=== PATIENT | female | born 1995 | race Caucasian/White ===

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

== ENCOUNTER 2018-02-14 08:09 | Emergency (ER) | payer OTHER ==
[~2018-02-14] VITALS: Ht 177.8 cm; Wt 142.9 kg
[~2018-02-14 08:09] MED LIST changes: +NAPROXEN500 MG PO; +PREDNISONE20 M1 PO; +SUDAFED 12 HOU120 MG PO
[2018-02-14 08:11] VITALS: BP 114/67
[2018-02-14] MEDS ORDERED: MUCINEX DM ER1 EACH PO (08:28)
[2018-02-14] MEDS ORDERED: ZITHROMAX250 MG PO (08:28)
== END 2018-02-14 08:30 | disposition home or self-care (01) ==
LOC: ED 08:09
DX: J06.9 Acute upper respiratory infection, unspecified (principal); Z88.6 Allergy status to analgesic agent; Z88.5 Allergy status to narcotic agent

== ENCOUNTER 2018-03-03 19:52 | Emergency (ER) | payer OTHER ==
[~2018-03-03] VITALS: Wt 135.6 kg
[~2018-03-03 19:52] MED LIST changes: +MUCINEX DM ER1 EACH PO; +ZITHROMAX250 MG PO
[2018-03-03 19:53] VITALS: BP 122/86
[2018-03-03 20:34] LABS: BASO % 0.5 % (0.0-1.0); EOS # 0.1 10*3/uL (0.0-0.4); EOS % 1.3 % (1.0-4.0); HEMOGLOBIN 13.8 g/dl (12.0-16.0); LYMPH # 2.1 10*3/uL (1.3-4.4); LYMPH % 35.1 % (27.0-41.0); MEAN CELL VOLUME 87.3 fl (81.0-99.0); MEAN CORPUSCULAR HGB 28.7 pg (27.0-31.0); MEAN CORPUSCULAR HGB CONC 32.9 g/dl (33.0-37.0); MONO # 0.6 10*3/uL (0.1-1.0); MONO % 9.5 % (3.0-9.0); NEUT # 3.2 10*3/uL (2.3-7.9); NEUT % 53.4 % (47.0-73.0); PLATELET COUNT AUTOMATED 271 10*3/uL (130-400); RED BLOOD COUNT 4.81 10*6/uL (4.10-5.10)
[2018-03-03 20:44] LABS: BILIRUBIN NEGATIVE (NEGATIVE); BLOOD NEGATIVE (NEGATIVE); CLARITY SL CLOUDY (CLEAR); COLOR YELLOW (YELLOW); GLUCOSE NEGATIVE (NEGATIVE); KETONE NEGATIVE (NEGATIVE); LEUKO ESTERASE NEGATIVE (NEGATIVE); NITRITE NEGATIVE (NEGATIVE); PH 5.5 (5.0-9.0); SPECIFIC GRAVITY >= 1.030 (1.005-1.030); UROBILINOGEN 0.2 E.U./dl (0.2-1.0)
[2018-03-03 20:54] LABS: ALBUMIN 3.8 gm/dl (3.1-4.5); BUN 8 mg/dl (7-24); CHLORIDE 115 mmol/L (98-107); LIPASE 147 U/L (73-393); POTASSIUM 3.4 mmol/L (3.5-5.1); SGOT/AST 17 IU/L (3-35); SGPT/ALT 30 U/L (12-78); SODIUM 144 mmol/L (136-145); TOTAL PROTEIN 7.4 gm/dL (6.4-8.2)
[2018-03-03 20:56] LABS: MUCOUS TRACE
[2018-03-03 20:56] LABS: ALKALINE PHOSPHATASE 95 U/L (45-117)
[2018-03-03] MEDS ORDERED: LOMOTIL 2.5-0.1 EACH PO (20:58)
[2018-03-03] MEDS ORDERED: ZOFRAN4 MG PO (20:58)
== END 2018-03-03 21:20 | disposition home or self-care (01) ==
LOC: ED 19:52
PROVIDERS: Nurse Practitioner Family
DX: R19.7 Diarrhea, unspecified (principal); R11.0 Nausea; Z88.5 Allergy status to narcotic agent; Z88.6 Allergy status to analgesic agent

== ENCOUNTER 2018-05-17 21:07 | Emergency (ER) | payer OTHER ==
[~2018-05-17] VITALS: Ht 180.3 cm; Wt 146.5 kg
[~2018-05-17 21:07] MED LIST changes: +LOMOTIL 2.5-0.1 EACH PO; +ZOFRAN4 MG PO
[2018-05-17 21:09] VITALS: BP 141/84
[2018-05-17] MEDS ORDERED: ZITHROMAX250 MG PO (21:41)
[2018-05-17] MEDS ORDERED: TESSALON PERLE100 MG PO (21:42)
== END 2018-05-17 22:00 | disposition home or self-care (01) ==
LOC: ED 21:07
DX: J20.9 Acute bronchitis, unspecified (principal); Z88.5 Allergy status to narcotic agent; Z88.6 Allergy status to analgesic agent; Z79.899 Other long term (current) drug therapy

== ENCOUNTER 2018-05-26 20:07 | Emergency (ER) | payer OTHER ==
[~2018-05-26] VITALS: Ht 180.3 cm; Wt 146.1 kg
[2018-05-26 20:10] VITALS: BP 132/76
[2018-05-26 21:03] LABS: BILIRUBIN NEGATIVE (NEGATIVE); BLOOD NEGATIVE (NEGATIVE); CLARITY SL CLOUDY (CLEAR); COLOR YELLOW (YELLOW); GLUCOSE NEGATIVE (NEGATIVE); KETONE NEGATIVE (NEGATIVE); LEUKO ESTERASE NEGATIVE (NEGATIVE); NITRITE NEGATIVE (NEGATIVE); PH 6.5 (5.0-9.0); UROBILINOGEN 0.2 E.U./dl (0.2-1.0)
[2018-05-26 21:15] LABS: BACTERIA 2+
[2018-05-26 21:16] LABS: URINE AMPHETAMINES < 1000 (1000ng/ml); URINE BARBITURATES < 200 (200ng/ml); URINE CANNABINOIDS (THC) < 50 (50ng/ml); URINE METHADONE < 300 (300ng/ml); URINE OPIATES < 300 (300ng/ml)
[2018-05-26 21:17] LABS: URINE BENZODIAZEPINES < 200 (200ng/ml); URINE COCAINE < 300 (300ng/ml)
[2018-05-26 21:18] LABS: URINE PHENCYCLIDINE < 25 (25ng/ml)
== END 2018-05-26 22:11 | disposition home or self-care (01) ==
LOC: ED 20:07
PROVIDERS: Nurse Practitioner Family
DX: Z02.83 Encounter for blood-alcohol and blood-drug test (principal); Z88.6 Allergy status to analgesic agent

== ENCOUNTER → 2018-06-19 | Outpatient (CLI) | payer OTHER ==
[2018-06-19 15:42] LABS: ALBUMIN 3.5 gm/dl (3.1-4.5); ALKALINE PHOSPHATASE 88 U/L (45-117); BUN 9 mg/dl (7-24); CHLORIDE 105 mmol/L (98-107); CREATININE 0.67 mg/dL (0.55-1.02); POTASSIUM 3.9 mmol/L (3.5-5.1); SGOT/AST 11 IU/L (3-35); SGPT/ALT 29 U/L (12-78); SODIUM 138 mmol/L (136-145)
== END | disposition home or self-care (01) ==
LOC: LAB 14:38
PROVIDERS: Family Medicine
DX: E03.9 Hypothyroidism, unspecified (principal); R63.2 Polyphagia; R03.0 Elevated blood-pressure reading, without diagnosis of hypertension; Z68.43 Body mass index [BMI] 50.0-59.9, adult

== ENCOUNTER 2018-07-01 14:58 | Emergency (ER) | payer OTHER ==
[~2018-07-01] VITALS: Ht 180.3 cm; Wt 146.5 kg
[2018-07-01 15:00] VITALS: BP 143/88
[2018-07-01] MEDS ORDERED: AUGMENTIN 875-875 MG PO (16:47)
== END 2018-07-01 17:16 | disposition home or self-care (01) ==
LOC: ED 14:58
DX: J01.90 Acute sinusitis, unspecified (principal); H66.91 Otitis media, unspecified, right ear; R59.0 Localized enlarged lymph nodes; Z88.5 Allergy status to narcotic agent; Z88.6 Allergy status to analgesic agent

== ENCOUNTER 2019-03-23 01:19 | Emergency (ER) | payer OTHER ==
[~2019-03-23] VITALS: Ht 180.3 cm; Wt 113.4 kg
[2019-03-23 01:26] VITALS: BP 129/82
[2019-03-23] MEDS ORDERED: AMOXICILLIN500 M2 PO (02:17)
== END 2019-03-23 02:30 | disposition home or self-care (01) ==
LOC: ED 01:19
DX: H66.93 Otitis media, unspecified, bilateral (principal); Z88.5 Allergy status to narcotic agent; Z88.8 Allergy status to other drugs, medicaments and biological substances; Z79.2 Long term (current) use of antibiotics

== ENCOUNTER 2019-10-22 19:34 | Emergency (ER) | payer OTHER ==
[~2019-10-22] VITALS: Ht 180.3 cm; Wt 140.6 kg
[2019-10-22 19:40] VITALS: BP 130/90
[2019-10-22] MEDS ORDERED: PENICILLIN VK500 MG PO (19:54)
[2019-10-22] MEDS ORDERED: IBU800 MG PO (19:54)
== END 2019-10-22 20:03 | disposition home or self-care (01) ==
LOC: ED 19:34
DX: K04.7 Periapical abscess without sinus (principal); K02.9 Dental caries, unspecified; Z88.6 Allergy status to analgesic agent

== ENCOUNTER 2019-10-29 14:18 | Emergency (ER) | payer OTHER ==
[~2019-10-29] VITALS: Ht 180.3 cm; Wt 145.1 kg
[~2019-10-29 14:18] MED LIST changes: +IBU800 MG PO; +PENICILLIN VK500 MG PO
[2019-10-29 14:36] VITALS: BP 121/81
[2019-10-29] MEDS ORDERED: METHOCARBAMOL500 M1 PO (15:50)
[2019-10-29] MEDS ORDERED: NAPROSYN500 MG PO (15:50)
== END 2019-10-29 15:52 | disposition home or self-care (01) ==
LOC: ED 14:18
DX: S39.012A Strain of muscle, fascia and tendon of lower back, initial encounter (principal); Z88.6 Allergy status to analgesic agent; V49.9XXA Car occupant (driver) (passenger) injured in unspecified traffic accident, initial encounter; Y93.89 Activity, other specified; Y92.89 Other specified places as the place of occurrence of the external cause; Y99.8 Other external cause status

== ENCOUNTER → 2019-11-12 | Outpatient (CLI) | payer OTHER ==
[~2019-11-12] MED LIST changes: +METHOCARBAMOL500 M1 PO
== END | disposition home or self-care (01) ==
LOC: COVID19 00:24
PROVIDERS: ATTEND Family Medicine
DX: Z20.828 Contact with and (suspected) exposure to other viral communicable diseases (principal)

== ENCOUNTER 2020-01-25 21:10 | Emergency (ER) | payer OTHER | END 2020-01-25 22:41 | disposition left against medical advice (07) | LOC: ED 21:10 | DX: K08.89 Other specified disorders of teeth and supporting structures (principal); Z53.21 Procedure and treatment not carried out due to patient leaving prior to being seen by health care provider ==

== ENCOUNTER 2020-02-05 23:22 | Emergency (ER) | payer OTHER ==
[~2020-02-05] VITALS: Ht 180.3 cm; Wt 115.7 kg
[2020-02-05 23:30] VITALS: BP 128/87
== END 2020-02-06 00:40 | disposition home or self-care (01) ==
LOC: ED 23:22
DX: S60.221A Contusion of right hand, initial encounter (principal); Z88.5 Allergy status to narcotic agent; Z88.8 Allergy status to other drugs, medicaments and biological substances; W19.XXXA Unspecified fall, initial encounter; Y93.89 Activity, other specified; Y92.89 Other specified places as the place of occurrence of the external cause; Y99.8 Other external cause status

== ENCOUNTER → 2020-02-26 | Outpatient (CLI) | payer OTHER | END | disposition home or self-care (01) | LOC: COVID19 16:04 | PROVIDERS: ATTEND Family Medicine | DX: U07.1 COVID-19 (principal) ==

== ENCOUNTER 2020-05-28 12:23 | Emergency (ER) | payer OTHER ==
[~2020-05-28] VITALS: Ht 180.3 cm; Wt 136.1 kg
[2020-05-28 12:26] VITALS: BP 150/93
[2020-05-28 13:37] LABS: BILIRUBIN Negative (Negative); BLOOD 2+ (Negative); CLARITY Clear (Clear); COLOR Yellow (Yellow); GLUCOSE Negative (Negative); KETONE Negative (Negative); LEUKO ESTERASE 3+ (Negative); NITRITE Negative (Negative); PH 6.5 (4.5-8.0); UROBILINOGEN 0.2 E.U./dl (0.0-1.0)
[2020-05-28 13:47] LABS: BACTERIA 2+; MUCOUS TRACE; RBC 41-50 rbc/hpf (0-2); WBC 31-40 wbc/hpf (0-5)
[2020-05-28] MEDS ORDERED: CEPHALEXIN500 M1 PO ×2 (14:24)
== END 2020-05-28 14:28 | disposition home or self-care (01) ==
LOC: ED 12:23
PROVIDERS: Nurse Practitioner Family
DX: O23.41 Unspecified infection of urinary tract in pregnancy, first trimester (principal); O10.911 Unspecified pre-existing hypertension complicating pregnancy, first trimester; O99.281 Endocrine, nutritional and metabolic diseases complicating pregnancy, first trimester; E07.9 Disorder of thyroid, unspecified; Z98.890 Other specified postprocedural states; Z88.5 Allergy status to narcotic agent; Z88.8 Allergy status to other drugs, medicaments and biological substances; Z3A.00 Weeks of gestation of pregnancy not specified

== ENCOUNTER 2020-06-21 22:00 | Emergency (ER) | payer OTHER ==
[~2020-06-21] VITALS: Ht 175.2 cm; Wt 145.1 kg
[~2020-06-21 22:00] MED LIST changes: +CEPHALEXIN500 M1 PO
[2020-06-21 22:31] VITALS: BP 132/59
== END 2020-06-21 23:16 | disposition left against medical advice (07) ==
LOC: ED 22:00
DX: R07.81 Pleurodynia (principal); I10 Essential (primary) hypertension; Z53.21 Procedure and treatment not carried out due to patient leaving prior to being seen by health care provider

== ENCOUNTER 2020-10-22 14:07 | Emergency (ER) | payer OTHER ==
[2020-10-22 14:23] VITALS: BP 134/78
[2020-10-22] MEDS ORDERED: PREDNISONE20 M1 PO (17:24)
[2020-10-22] MEDS ORDERED: PROVENTIL HFA6.7 GM INH (17:24)
== END 2020-10-22 17:33 | disposition home or self-care (01) ==
LOC: ED 14:07
DX: O99.512 Diseases of the respiratory system complicating pregnancy, second trimester (principal); Z20.822 Contact with and (suspected) exposure to COVID-19; J40 Bronchitis, not specified as acute or chronic; R19.7 Diarrhea, unspecified; Z88.5 Allergy status to narcotic agent; Z88.8 Allergy status to other drugs, medicaments and biological substances

== ENCOUNTER 2021-01-29 00:06 | Emergency (ER) | payer OTHER ==
[~2021-01-29] VITALS: Ht 180.3 cm; Wt 163.3 kg
[~2021-01-29 00:06] MED LIST changes: +PROVENTIL HFA6.7 GM INH
[2021-01-29 00:21] VITALS: BP 138/87
[2021-01-29 01:06] LABS: BILIRUBIN Negative (Negative); BLOOD Negative (Negative); CLARITY Cloudy (Clear); COLOR Yellow (Yellow); GLUCOSE Negative (Negative); KETONE Negative (Negative); LEUKO ESTERASE Negative (Negative); NITRITE Negative (Negative); SPECIFIC GRAVITY 1.015 (1.001-1.030)
[2021-01-29 01:44] LABS: EPITHELIAL CELLS 51-100; WBC 0-2 wbc/hpf (0-5)
[2021-01-29 01:45] LABS: BACTERIA TRACE
[2021-01-29] MEDS ORDERED: CEPHALEXIN500 M1 PO (02:34)
== END 2021-01-29 02:50 | disposition home or self-care (01) ==
LOC: ED 00:06
PROVIDERS: Emergency Medicine
DX: R30.0 Dysuria (principal); R30.9 Painful micturition, unspecified; Z88.6 Allergy status to analgesic agent

== ENCOUNTER 2021-06-12 19:06 | Emergency (ER) | payer OTHER ==
[~2021-06-12] VITALS: Ht 172.7 cm; Wt 166.9 kg
[2021-06-12 19:20] VITALS: BP 117/39
[2021-06-12] MEDS ORDERED: AUGMENTIN 875-875 MG PO (19:33)
== END 2021-06-12 19:38 | disposition home or self-care (01) ==
LOC: ED 19:06
DX: H66.91 Otitis media, unspecified, right ear (principal); Z88.6 Allergy status to analgesic agent

== ENCOUNTER 2021-06-25 17:58 | Emergency (ER) | payer OTHER ==
[~2021-06-25] VITALS: Ht 180.3 cm; Wt 154.2 kg
[2021-06-25 18:17] VITALS: BP 136/87
[2021-06-25] MEDS ORDERED: PROVENTIL HFA6.7 GM INH (18:48)
[2021-06-25] MEDS ORDERED: PREDNISONE20 M1 PO (18:48)
[2021-06-25] MEDS ORDERED: MUCINEX1200 M1 PO (18:48)
[2021-06-25] MEDS ORDERED: ALLEGRA ALLERG180 M2 PO (18:48)
== END 2021-06-25 20:03 | disposition home or self-care (01) ==
LOC: ED 17:58
DX: J45.909 Unspecified asthma, uncomplicated (principal); Z88.8 Allergy status to other drugs, medicaments and biological substances

== ENCOUNTER 2021-08-10 09:10 | Emergency (ER) | payer OTHER ==
[~2021-08-10] VITALS: Ht 180.3 cm; Wt 165.6 kg
[~2021-08-10 09:10] MED LIST changes: +ALLEGRA ALLERG180 M2 PO; +MUCINEX1200 M1 PO
[2021-08-10 09:19] VITALS: BP 133/86
[2021-08-10] MEDS ORDERED: ZITHROMAX250 MG PO (11:12)
== END 2021-08-10 11:16 | disposition home or self-care (01) ==
LOC: ED 09:10
DX: H66.91 Otitis media, unspecified, right ear (principal); Z88.6 Allergy status to analgesic agent

== ENCOUNTER 2021-08-13 18:41 | Emergency (ER) | payer OTHER ==
[~2021-08-13] VITALS: Wt 163.3 kg
[2021-08-13 18:48] VITALS: BP 135/83
[2021-08-13] MEDS ORDERED: CETIRIZINE10 MG PO (19:03)
[2021-08-13] MEDS ORDERED: CEFDINIR300 MG PO (19:03)
== END 2021-08-13 19:07 | disposition home or self-care (01) ==
LOC: ED 18:41
DX: H65.01 Acute serous otitis media, right ear (principal); Z88.6 Allergy status to analgesic agent

== ENCOUNTER 2021-09-09 18:10 | Emergency (ER) | payer OTHER ==
[~2021-09-09 18:10] MED LIST changes: +CEFDINIR300 MG PO; +CETIRIZINE10 MG PO
[2021-09-09 18:27] VITALS: BP 138/79
== END 2021-09-09 18:58 | disposition home or self-care (01) ==
LOC: ED 18:10
DX: H60.91 Unspecified otitis externa, right ear (principal)

== ENCOUNTER 2021-09-12 20:30 | Emergency (ER) | payer OTHER ==
[2021-09-12 20:35] VITALS: BP 142/94
== END 2021-09-12 21:15 | disposition home or self-care (01) ==
LOC: ED 20:30
DX: Z04.1 Encounter for examination and observation following transport accident (principal); Z88.8 Allergy status to other drugs, medicaments and biological substances; V89.2XXA Person injured in unspecified motor-vehicle accident, traffic, initial encounter; Y93.89 Activity, other specified; Y92.89 Other specified places as the place of occurrence of the external cause; Y99.8 Other external cause status

== ENCOUNTER 2021-11-11 13:43 | Emergency (ER) | payer OTHER ==
[~2021-11-11] VITALS: Ht 180.3 cm; Wt 167.8 kg
[2021-11-11 13:50] VITALS: BP 148/93
[2021-11-11] MEDS ORDERED: AMOXICILLIN500 M3 PO (14:12)
== END 2021-11-11 13:56 | disposition home or self-care (01) ==
LOC: ED 13:43
DX: K02.9 Dental caries, unspecified (principal); Z88.5 Allergy status to narcotic agent; Z88.8 Allergy status to other drugs, medicaments and biological substances; Z88.6 Allergy status to analgesic agent; Z79.2 Long term (current) use of antibiotics; Z79.899 Other long term (current) drug therapy

== ENCOUNTER 2021-11-26 18:39 | Emergency (ER) | payer OTHER ==
[~2021-11-26] VITALS: Ht 180.3 cm; Wt 167.8 kg
[~2021-11-26 18:39] MED LIST changes: +AMOXICILLIN500 M3 PO
[2021-11-26 20:31] VITALS: BP 132/87
[2021-11-26] MEDS ORDERED: NAPROSYN500 MG PO (21:59)
== END 2021-11-26 22:13 | disposition home or self-care (01) ==
LOC: ED 18:39
DX: S83.91XA Sprain of unspecified site of right knee, initial encounter (principal); Z88.5 Allergy status to narcotic agent; Z88.8 Allergy status to other drugs, medicaments and biological substances; Z88.6 Allergy status to analgesic agent; Z79.2 Long term (current) use of antibiotics; Z79.899 Other long term (current) drug therapy; W18.39XA Other fall on same level, initial encounter; Y93.89 Activity, other specified; Y92.89 Other specified places as the place of occurrence of the external cause; Y99.8 Other external cause status

== ENCOUNTER 2021-12-30 02:49 | Emergency (ER) | payer OTHER ==
[~2021-12-30] VITALS: Ht 180.3 cm; Wt 165.6 kg
[2021-12-30 05:19] VITALS: BP 137/93
[2021-12-30 05:23] LABS: BILIRUBIN Negative (Negative); BLOOD Negative (Negative); CLARITY Clear (Clear); COLOR Yellow (Yellow); GLUCOSE Negative (Negative); KETONE Negative (Negative); LEUKO ESTERASE 1+ (Negative); NITRITE Negative (Negative); PH 5.5 (4.5-8.0); UROBILINOGEN 0.2 E.U./dl (0.0-1.0)
[2021-12-30 05:41] LABS: BACTERIA TRACE
[2021-12-30] MEDS ORDERED: CEPHALEXIN500 M1 PO (06:44)
== END 2021-12-30 06:56 | disposition home or self-care (01) ==
LOC: ED 02:49
PROVIDERS: Emergency Medicine
DX: N39.0 Urinary tract infection, site not specified (principal); Z88.6 Allergy status to analgesic agent

== ENCOUNTER 2022-01-01 01:11 | Emergency (ER) | payer OTHER ==
[~2022-01-01] VITALS: Ht 180.3 cm; Wt 172.4 kg
[2022-01-01 01:33] VITALS: BP 145/89
[2022-01-01 01:58] LABS: BILIRUBIN Negative (Negative); BLOOD Negative (Negative); CLARITY Clear (Clear); COLOR Yellow (Yellow); GLUCOSE Negative (Negative); KETONE Negative (Negative); LEUKO ESTERASE 3+ (Negative); NITRITE Negative (Negative); PH 5.5 (4.5-8.0); UROBILINOGEN 0.2 E.U./dl (0.0-1.0)
[2022-01-01 02:13] LABS: BACTERIA TRACE; WBC 31-40 wbc/hpf (0-5)
[2022-01-01] MEDS ORDERED: VALTREX1000 MG PO (03:42)
== END 2022-01-01 04:05 | disposition home or self-care (01) ==
LOC: ED 01:11
PROVIDERS: Emergency Medicine
DX: A60.00 Herpesviral infection of urogenital system, unspecified (principal); Z88.6 Allergy status to analgesic agent

== ENCOUNTER 2022-01-10 01:27 | Emergency (ER) | payer OTHER ==
[~2022-01-10 01:27] MED LIST changes: +VALTREX1000 MG PO
[2022-01-10 01:45] VITALS: BP 124/50
[2022-01-10] MEDS ORDERED: ONDANSETRON4 MG SL (02:42)
== END 2022-01-10 03:01 | disposition home or self-care (01) ==
LOC: ED 01:27
DX: K52.9 Noninfective gastroenteritis and colitis, unspecified (principal); R11.2 Nausea with vomiting, unspecified; Z88.5 Allergy status to narcotic agent; Z88.6 Allergy status to analgesic agent

== ENCOUNTER 2022-03-18 16:18 | Emergency (ER) | payer OTHER ==
[~2022-03-18] VITALS: Wt 161.0 kg
[~2022-03-18 16:18] MED LIST changes: +ONDANSETRON4 MG SL
[2022-03-18 16:31] VITALS: BP 114/81
[2022-03-18] MEDS ORDERED: NAPROSYN500 MG PO (19:22)
[2022-03-18] MEDS ORDERED: AMOXICILLIN500 M3 PO (19:22)
== END 2022-03-18 19:39 | disposition home or self-care (01) ==
LOC: ED 16:18
DX: K02.9 Dental caries, unspecified (principal); Z88.8 Allergy status to other drugs, medicaments and biological substances

== ENCOUNTER 2022-05-23 15:02 | Emergency (ER) | payer OTHER ==
[~2022-05-23] VITALS: Ht 180.3 cm; Wt 172.4 kg
[2022-05-23 15:10] VITALS: BP 155/99
[2022-05-24] MEDS ORDERED: TRAMADOL HCL50 MG PO (19:28)
[2022-05-24] MEDS ORDERED: CLINDAMYCIN HC300 MG PO (19:28)
== END 2022-05-23 15:44 | disposition left against medical advice (07) ==
LOC: ED 15:02
DX: K08.89 Other specified disorders of teeth and supporting structures (principal); Z88.8 Allergy status to other drugs, medicaments and biological substances

== ENCOUNTER 2022-05-24 18:32 | Emergency (ER) | payer OTHER ==
[~2022-05-24] VITALS: Ht 180.3 cm; Wt 172.4 kg
[2022-05-24 18:47] VITALS: BP 157/91
[2022-05-24] MEDS ORDERED: CLINDAMYCIN HC300 MG PO (19:28)
[2022-05-24] MEDS ORDERED: TRAMADOL HCL50 MG PO (19:28)
== END 2022-05-24 19:31 | disposition home or self-care (01) ==
LOC: ED 18:32
DX: K08.89 Other specified disorders of teeth and supporting structures (principal); Z88.8 Allergy status to other drugs, medicaments and biological substances

== ENCOUNTER 2022-05-26 11:54 | Emergency (ER) | payer OTHER ==
[~2022-05-26] VITALS: Ht 180.3 cm; Wt 172.4 kg
[~2022-05-26 11:54] MED LIST changes: +CLINDAMYCIN HC300 MG PO; +TRAMADOL HCL50 MG PO
[2022-05-26 12:06] VITALS: BP 142/100
[2022-05-26 12:28] LABS: BASO # 0.1 10*3/uL (0.0-0.1); BASO % 0.7 % (0.0-1.0); EOS # 0.2 10*3/uL (0.0-0.4); EOS % 1.6 % (1.0-4.0); HEMATOCRIT 46.6 % (37.0-47.0); LYMPH # 2.8 10*3/uL (1.3-4.4); LYMPH % 30.2 % (27.0-41.0); MEAN CELL VOLUME 87.4 fl (81.0-99.0); MEAN CORPUSCULAR HGB 28.5 pg (27.0-31.0); MEAN CORPUSCULAR HGB CONC 32.6 g/dl (33.0-37.0); MEAN PLATELET VOLUME 10.9 fl (9.6-12.3); MONO # 0.6 10*3/uL (0.1-1.0); MONO % 6.4 % (3.0-9.0); NEUT # 5.6 10*3/uL (2.3-7.9); NEUT % 60.8 % (47.0-73.0); PLATELET COUNT AUTOMATED 306 10*3/uL (130-400); RED BLOOD COUNT 5.33 10*6/uL (4.10-5.10); RED CELL DISTRI WIDTH 13.2 % (0-14.5); WHITE BLOOD COUNT 9.1 10*3/uL (4.8-10.8)
[2022-05-26 12:42] LABS: BUN 9 mg/dl (9-23); CHLORIDE 104 mmol/L (98-107); POTASSIUM 4.1 mmol/L (3.4-5.1)
[2022-05-26] MEDS ORDERED: PREDNISONE20 M1 PO (12:56)
[2022-05-26] MEDS ORDERED: MELOXICAM15 MG PO (12:56)
== END 2022-05-26 13:04 | disposition home or self-care (01) ==
LOC: ED 11:54
PROVIDERS: Internal Medicine
DX: K14.8 Other diseases of tongue (principal); T40.425A Adverse effect of tramadol, initial encounter; K08.89 Other specified disorders of teeth and supporting structures; I10 Essential (primary) hypertension; R60.9 Edema, unspecified; Z88.5 Allergy status to narcotic agent; Z88.8 Allergy status to other drugs, medicaments and biological substances; Z98.890 Other specified postprocedural states; Y92.89 Other specified places as the place of occurrence of the external cause

== ENCOUNTER 2022-06-21 20:52 | Emergency (ER) | payer OTHER ==
[~2022-06-21] VITALS: Ht 180.3 cm; Wt 172.8 kg
[~2022-06-21 20:52] MED LIST changes: +MELOXICAM15 MG PO
[2022-06-21 21:38] VITALS: BP 154/98
[2022-06-21] MEDS ORDERED: AMOX-CLAV 875-1 EACH PO (21:58)
== END 2022-06-21 22:08 | disposition home or self-care (01) ==
LOC: ED 20:52
DX: H66.91 Otitis media, unspecified, right ear (principal); Z88.8 Allergy status to other drugs, medicaments and biological substances

== ENCOUNTER 2022-07-31 20:49 | Emergency (ER) | payer OTHER ==
[~2022-07-31] VITALS: Ht 172.7 cm; Wt 149.7 kg
[~2022-07-31 20:49] MED LIST changes: +AMOX-CLAV 875-1 EACH PO
[2022-07-31 20:55] VITALS: BP 124/78
[2022-07-31 21:35] LABS: BASO # 0.1 10*3/uL (0.0-0.1); BASO % 0.7 % (0.0-1.0); EOS # 0.1 10*3/uL (0.0-0.4); EOS % 1.3 % (1.0-4.0); HEMATOCRIT 41.6 % (37.0-47.0); LYMPH # 3.2 10*3/uL (1.3-4.4); LYMPH % 37.9 % (27.0-41.0); MEAN CELL VOLUME 87.4 fl (81.0-99.0); MEAN CORPUSCULAR HGB 29.2 pg (27.0-31.0); MEAN CORPUSCULAR HGB CONC 33.4 g/dl (33.0-37.0); MEAN PLATELET VOLUME 11.6 fl (9.6-12.3); MONO # 0.6 10*3/uL (0.1-1.0); MONO % 6.5 % (3.0-9.0); NEUT # 4.6 10*3/uL (2.3-7.9); NEUT % 53.5 % (47.0-73.0); PLATELET COUNT AUTOMATED 277 10*3/uL (130-400); RED BLOOD COUNT 4.76 10*6/uL (4.10-5.10); RED CELL DISTRI WIDTH 13.6 % (0-14.5); WHITE BLOOD COUNT 8.6 10*3/uL (4.8-10.8)
[2022-07-31 21:51] LABS: ALKALINE PHOSPHATASE 81 U/L (46-116); BUN 8 mg/dl (9-23); CHLORIDE 105 mmol/L (98-107); POTASSIUM 2.7 mmol/L (3.4-5.1); SGPT/ALT 22 U/L (10-49); TOTAL PROTEIN 7.2 gm/dL (6.0-8.0)
== END 2022-08-01 00:08 | disposition home or self-care (01) ==
LOC: ED 20:49
PROVIDERS: Internal Medicine
DX: R07.89 Other chest pain (principal); R42 Dizziness and giddiness; R61 Generalized hyperhidrosis; I10 Essential (primary) hypertension; Z88.5 Allergy status to narcotic agent; Z88.8 Allergy status to other drugs, medicaments and biological substances; Z98.890 Other specified postprocedural states

== ENCOUNTER → 2022-12-21 | Outpatient (CLI) | payer OTHER | END | disposition home or self-care (01) | LOC: LAB 08:39 | PROVIDERS: ATTEND Obstetrics & Gynecology | DX: N91.2 Amenorrhea, unspecified (principal) ==

== ENCOUNTER → 2022-12-24 | Outpatient (CLI) | payer OTHER | END | disposition home or self-care (01) | LOC: LAB 08:47 | PROVIDERS: ATTEND Obstetrics & Gynecology | DX: Z34.03 Encounter for supervision of normal first pregnancy, third trimester (principal); N91.2 Amenorrhea, unspecified; Z3A.00 Weeks of gestation of pregnancy not specified ==

== ENCOUNTER → 2023-02-21 | Outpatient (CLI) | payer OTHER ==
[2023-02-21 09:46] LABS: BASO % 0.3 % (0.0-1.0); EOS # 0.1 10*3/uL (0.0-0.4); EOS % 1.1 % (1.0-4.0); HEMATOCRIT 39.2 % (37.0-47.0); LYMPH # 2.3 10*3/uL (1.3-4.4); LYMPH % 21.4 % (27.0-41.0); MEAN CORPUSCULAR HGB 30.2 pg (27.0-31.0); MEAN CORPUSCULAR HGB CONC 33.2 g/dl (33.0-37.0); MEAN PLATELET VOLUME 12.2 fl (9.6-12.3); MONO # 0.5 10*3/uL (0.1-1.0); MONO % 4.5 % (3.0-9.0); NEUT # 7.8 10*3/uL (2.3-7.9); NEUT % 72.4 % (47.0-73.0); PLATELET COUNT AUTOMATED 193 10*3/uL (130-400); RED BLOOD COUNT 4.31 10*6/uL (4.10-5.10); RED CELL DISTRI WIDTH 14.4 % (0-14.5); WHITE BLOOD COUNT 10.8 10*3/uL (4.8-10.8)
[2023-02-22 06:08] LABS: HEPATITIS B SURFACE AG Negative (Negative)
== END | disposition home or self-care (01) ==
LOC: LAB 08:57
PROVIDERS: ATTEND Obstetrics & Gynecology
DX: O09.92 Supervision of high risk pregnancy, unspecified, second trimester (principal); Z3A.00 Weeks of gestation of pregnancy not specified

== ENCOUNTER → 2023-04-19 | Outpatient (CLI) | payer OTHER ==
[2023-04-19 11:17] LABS: BASO % 0.4 % (0.0-1.0); EOS # 0.1 10*3/uL (0.0-0.4); HEMATOCRIT 38.6 % (37.0-47.0); LYMPH # 1.7 10*3/uL (1.3-4.4); LYMPH % 21.4 % (27.0-41.0); MEAN CORPUSCULAR HGB 30.1 pg (27.0-31.0); MEAN CORPUSCULAR HGB CONC 32.4 g/dl (33.0-37.0); MEAN PLATELET VOLUME 11.8 fl (9.6-12.3); MONO # 0.5 10*3/uL (0.1-1.0); MONO % 5.7 % (3.0-9.0); NEUT # 5.8 10*3/uL (2.3-7.9); NEUT % 71.1 % (47.0-73.0); PLATELET COUNT AUTOMATED 180 10*3/uL (130-400); RED BLOOD COUNT 4.15 10*6/uL (4.10-5.10); RED CELL DISTRI WIDTH 13.8 % (0-14.5); WHITE BLOOD COUNT 8.1 10*3/uL (4.8-10.8)
== END | disposition home or self-care (01) ==
LOC: LAB 10:53
PROVIDERS: ATTEND Obstetrics & Gynecology
DX: O09.93 Supervision of high risk pregnancy, unspecified, third trimester (principal); Z3A.00 Weeks of gestation of pregnancy not specified; Z98.890 Other specified postprocedural states; O09.893 Supervision of other high risk pregnancies, third trimester

== ENCOUNTER → 2023-08-06 | Outpatient (CLI) | payer OTHER ==
[2023-08-06 11:27] LABS: URINE AMPHETAMINES Negative (1000ng/ml); URINE BARBITURATES Negative (200ng/ml); URINE BENZODIAZEPINES Negative (200ng/ml); URINE CANNABINOIDS (THC) Negative (50ng/ml); URINE COCAINE Negative (300ng/ml); URINE METHADONE Negative (300ng/ml); URINE OPIATES Negative (300ng/ml); URINE PHENCYCLIDINE Negative (25ng/ml)
== END | disposition home or self-care (01) ==
LOC: LAB 11:01
PROVIDERS: ATTEND Nurse Practitioner Family
DX: Z79.899 Other long term (current) drug therapy (principal)

== ENCOUNTER 2024-05-29 16:09 | Emergency (ER) | payer OTHER ==
[~2024-05-29] VITALS: Ht 180.3 cm; Wt 163.3 kg
[2024-05-29 17:08] VITALS: BP 154/100
[2024-05-29] MEDS ORDERED: AMOX-CLAV 875-1 EACH PO (17:22)
== END 2024-05-29 17:28 | disposition home or self-care (01) ==
LOC: ED 16:09
DX: K04.7 Periapical abscess without sinus (principal); F32.A Depression, unspecified; F41.9 Anxiety disorder, unspecified; Z88.8 Allergy status to other drugs, medicaments and biological substances; Z88.6 Allergy status to analgesic agent; Z79.2 Long term (current) use of antibiotics

== ENCOUNTER 2024-06-02 17:30 | Emergency (ER) | payer OTHER ==
[~2024-06-02] VITALS: Ht 180.3 cm; Wt 154.2 kg
[2024-06-02 18:02] VITALS: BP 137/95
[2024-06-02] MEDS ORDERED: VALTREX1000 MG PO (19:28)
[2024-06-02] MEDS ORDERED: Bacitracin Zinc 14 GM TUBE T ONE (19:55)
[2024-06-02] MEDS ORDERED: NAPROXEN 250 MG TAB PO ONE (21:05)
[2024-06-02] MEDS ORDERED: NAPROSYN500 MG PO (21:07)
== END 2024-06-02 21:13 | disposition home or self-care (01) ==
LOC: ED 17:30
DX: S80.01XA Contusion of right knee, initial encounter (principal); I10 Essential (primary) hypertension; Z88.5 Allergy status to narcotic agent; Z88.8 Allergy status to other drugs, medicaments and biological substances; Z98.890 Other specified postprocedural states; W10.9XXA Fall (on) (from) unspecified stairs and steps, initial encounter; Y93.89 Activity, other specified; Y92.009 Unspecified place in unspecified non-institutional (private) residence as the place of occurrence of the external cause; Y99.8 Other external cause status

== ENCOUNTER 2024-07-01 12:17 | Emergency (ER) | payer OTHER ==
[~2024-07-01] VITALS: Ht 180.3 cm; Wt 167.8 kg
[2024-07-01 12:30] VITALS: BP 126/77
[2024-07-01] MEDS ORDERED: Ketorolac Tromethamine 60 MG/2 ML VIAL IM ONE (15:00)
[2024-07-01] MEDS ORDERED: SODIUM CHLORIDE 0.9% 250 ML IV SCH (15:10)
[2024-07-01] MEDS ORDERED: Acetaminophen/Hydrocodone 5 MG/325 MG TABLET PO ONE (15:20)
== END 2024-07-01 15:35 | disposition home or self-care (01) ==
LOC: ED 12:17
DX: G89.29 Other chronic pain (principal); M54.50 Low back pain, unspecified; I10 Essential (primary) hypertension; E03.9 Hypothyroidism, unspecified; Z79.899 Other long term (current) drug therapy; Z88.5 Allergy status to narcotic agent; Z88.6 Allergy status to analgesic agent; Z98.890 Other specified postprocedural states; W18.39XA Other fall on same level, initial encounter; Y93.89 Activity, other specified; Y92.89 Other specified places as the place of occurrence of the external cause; Y99.8 Other external cause status

== ENCOUNTER 2024-11-01 20:58 | Emergency (ER) | payer OTHER ==
[~2024-11-01] VITALS: Ht 180.3 cm; Wt 156.0 kg
[2024-11-01 21:14] VITALS: BP 143/88
[2024-11-01] MEDS ORDERED: Acetaminophen/Hydrocodone 5 MG/325 MG TABLET PO ONE (21:25)
[2024-11-01] MEDS ORDERED: PENICILLIN V POTASSIUM 500 MG TAB PO ONE (21:25)
[2024-11-01] MEDS ORDERED: Ondansetron Hydrochloride 4 MG TAB SL ONE (21:25)
[2024-11-01] MEDS ORDERED: PENICILLIN VK500 MG PO (21:34)
== END 2024-11-01 21:42 | disposition home or self-care (01) ==
LOC: ED 20:58
DX: K02.9 Dental caries, unspecified (principal); I10 Essential (primary) hypertension; Z88.5 Allergy status to narcotic agent